=== PATIENT | male | born 1985 | race Caucasian/White ===

== ENCOUNTER 2018-03-30 02:24 | Emergency (ER) | payer BC, OTHER ==
[~2018-03-30] VITALS: Ht 175.3 cm; Wt 93.3 kg
[2018-03-30] MEDS ORDERED: ERYTHROMYC1 APPLICAT BOTH EYES (03:20)
[2018-03-30] MEDS ORDERED: TOBREX5 ML BOTH EYES (03:20)
[2018-03-30 03:33] VITALS: BP 142/94
== END 2018-03-30 03:35 | disposition home or self-care (01) ==
LOC: EME 02:24
DX: T26.12XA Burn of cornea and conjunctival sac, left eye, initial encounter (principal); T26.11XA Burn of cornea and conjunctival sac, right eye, initial encounter; X13.1XXA Other contact with steam and other hot vapors, initial encounter; Z88.8 Allergy status to other drugs, medicaments and biological substances
CPT/HCPCS: 99281; 99284